=== PATIENT | female | born 1975 | race Caucasian/White ===

== ENCOUNTER → 2017-05-13 | Outpatient (REF) ==
[~2017-05-13] MED LIST: AZI250 PO; CLON-303 PO; ESTRIDIOL; HYD2 PO; IBU600 PO; IPR14R INH; METO-566 PO; NO MEDS; OMEP-218 PO; PEN250 PO; PREG75CA61 PO; TRA50 PO; TRAZ-133 PO
--- NOTE | 2017-05-13 16:14 | RADIOLOGY IMAGING REPORT ---
FACILITY: [facility] PATIENT NAME: Dona Ladd : 1975 MR: [id number] V: [id number] EXAM DATE: ORDERING PHYSICIAN: CHAUNCEY TOURE TECHNOLOGIST: Location: [facility] Patient: Dona Ladd : 1975 Visit/Account:[id number] Date of Sevice: 05/13/2017 Exam type: 4 views lumbar spine History: Fall, low back pain Comparison: 07/06/2012. Findings: There are 5 nonrib-bearing lumbar vertebral bodies and a transitional lumbosacral segment. No acute fracture is seen. AP alignment is appropriate. The soft tissues demonstrate some calcifications in the pelvis which are likely phleboliths. IMPRESSION: 1. No acute fracture of the lumbar spine. Report Dictated By: Maurizio Michelle MD at 05/13/2017 4:08 PM Report E-Signed By: Maurizio Michelle MD at 05/13/2017 4:10 PM WSN:[id number]
== END ==
LOC: RAD 15:25
PROVIDERS: ATTEND Nurse Practitioner
DX: M54.5 Low back pain (principal)
CPT/HCPCS: 72100

== ENCOUNTER → 2017-09-01 | Outpatient (REF) ==
--- NOTE | 2017-09-01 10:33 | RADIOLOGY IMAGING REPORT ---
FACILITY: [facility] PATIENT NAME: Dona Ladd : 1975 MR: [id number] V: [id number] EXAM DATE: ORDERING PHYSICIAN: KINA CARDENAS TECHNOLOGIST: Location: [facility] [place] Patient: Dona Ladd : 1975 Visit/Account:[id number] Date of Sevice: 09/01/2017 WRIST RIGHT 2 VIEW Indication: Wrist pain three weeks after injury Comparison: None Available Findings: No evidence of fracture, dislocation, or acute osseous abnormality right wrist. Small bone island is noted within the medial aspect of the distal radius There is no focal soft tissue abnormality. IMPRESSION: 1.No acute osseous abnormality right wrist Report Dictated By: Myke Saleh at 09/01/2017 10:28 AM Report E-Signed By: Myke Saleh at 09/01/2017 10:29 AM WSN:[id number]
== END ==
LOC: RAD 08:15
PROVIDERS: ATTEND Internal Medicine
DX: M25.531 Pain in right wrist (principal)

== ENCOUNTER → 2017-09-12 | Outpatient (REF) ==
--- NOTE | 2017-09-12 13:56 | RADIOLOGY IMAGING REPORT ---
FACILITY: [facility] [place] PATIENT NAME: Dona Ladd : 1975 MR: [id number] V: [id number] EXAM DATE: ORDERING PHYSICIAN: MADELEINE WHYTE TECHNOLOGIST: Location: [facility] Patient: Dona Ladd : 1975 Visit/Account:[id number] Date of Sevice: 09/12/2017 EXAMINATION: Right elbow radiographs 3 views HISTORY: Right elbow pain. Twisted 5 weeks ago. COMPARISON: None. FINDINGS: AP, lateral and oblique views of the right elbow were obtained. Bones: No acute fracture or dislocation. Joint spaces: Negative. Hardware: None. Alignment: Normal. Soft tissues: Negative. Effusion: None. IMPRESSION: No acute fracture or effusion of the right elbow. Report Dictated By: Sheryl Head MD at 09/12/2017 1:51 PM Report E-Signed By: Sheryl Head MD at 09/12/2017 1:53 PM WSN:[email or web address]
== END ==
LOC: RAD 12:55
PROVIDERS: ATTEND Orthopaedic Surgery Orthopaedic Surgery of the Spine
DX: M25.521 Pain in right elbow (principal)

== ENCOUNTER → 2017-11-16 | Outpatient (REF) ==
--- NOTE | 2017-11-16 13:45 | RADIOLOGY IMAGING REPORT ---
FACILITY: [facility] PATIENT NAME: Dona Ladd : 1975 MR: [id number] V: [id number] EXAM DATE: ORDERING PHYSICIAN: MADELEINE WHYTE TECHNOLOGIST: Location: [facility] Patient: Dona Ladd : 1975 Visit/Account:[id number] Date of Sevice: 11/16/2017 ELBOW RIGHT W/O CONTRAST HISTORY: Elbow pain COMPARISON: None TECHNIQUE: Multiplanar/multisequence was obtained through the right elbow without contrast. CONTRAST: None FINDINGS: Bone marrow: Normal Soft tissues: Normal Medial joint space: Normal without osteochondral lesion Lateral joint space: Normal without osteochondral lesion Ulnar collateral ligament: Normal Lateral collateral ligament: Normal Joint effusion: None Common flexor tendon: Normal Common extensor tendon: Normal Biceps tendon: Normal Triceps tendon: Normal Ulnar nerve: Normal Other findings: None significant IMPRESSION: 1. Unremarkable examination. Report Dictated By: Jameel Ferreira MD at 11/16/2017 1:34 PM Report E-Signed By: Jameel Ferreira MD at 11/16/2017 1:40 PM WSN:[id number]
== END ==
LOC: MRI 06:51
PROVIDERS: ATTEND Orthopaedic Surgery Orthopaedic Surgery of the Spine
DX: M25.521 Pain in right elbow (principal)

== ENCOUNTER → 2018-05-05 | Outpatient (REF) ==
--- NOTE | 2018-05-05 09:52 | RADIOLOGY IMAGING REPORT ---
FACILITY: [facility] [place] PATIENT NAME: Dona Ladd : 1975 MR: [id number] V: [id number] EXAM DATE: ORDERING PHYSICIAN: CHAUNCEY TOURE TECHNOLOGIST: Location: [facility] Patient: Dona Ladd : 1975 Visit/Account:[id number] Date of Sevice: 05/05/2018 MR SPINE LUMBAR W/O CON COMPARISON: Lumbar spine MRI dated December 15, 2012 Additional pertinent history: Tingling and numbness in the legs. Technique: Multiplanar multisequence lumbar spine MRI was performed without gadolinium enhancement. FINDINGS: Vertebral body heights and alignment: Negative. Vertebral marrow signal: Regions of increased T1 and increased T2 signal involving the T12 and L1 bayron tebral bodies compatible with underlying hemangiomas. Distal thoracic cord and conus: Negative. The conus ends at T12-L1. Surrounding soft tissues: Negative. Inspection of the disc spaces reveal the following: L5-S1: Negative. L4-L5: Minimal circumferential disc bulging with facet hypertrophic changes. No significant canal or neural foraminal narrowing. No change since previous exam L3-L4: Negative. L2-L3: Negative. L1-L2: Negative. T12-L1: Negative. IMPRESSION: 1. Stable minimal spondylitic change involving the lower lumbar spine. 2. No underlying canal or neural foraminal narrowing. 3. No change since previous exam Report Dictated By: Abhishek Henning MD at 05/05/2018 9:43 AM Report E-Signed By: Abhishek Henning MD at 05/05/2018 9:47 AM WSN:[id number]
== END ==
LOC: MRI 06:46
PROVIDERS: ATTEND Nurse Practitioner
DX: R07.9 Chest pain, unspecified (principal)
CPT/HCPCS: 72148

== ENCOUNTER → 2018-05-12 | Outpatient (REF) ==
--- NOTE | 2018-05-12 13:54 | RT STRESS TEST REPORT ---
FACILITY: [facility] PATIENT NAME: JAYA GARCIA : [id number] MR: [id number] V: [id number] EXAM DATE: ORDERING PHYSICIAN: CHAUNCEY TOURE TECHNOLOGIST: [employer] Time: 2018-05-12 10:42:42 Total Exercise Time: 00:08:00 Test Indications: chest pain Medications: Protocol: FRANTZ 2 Max HR: 179 BPM 100% of Pred: 179 BPM Max BP: 183/091 mmHG Max Work Load: 10.2 METS SEE ECHO REPORT Confirmed by OREN GEIGER ([id number]), assistant production editor AMADOU NOEL ([id number]) on 05/12/2018 1:54:08 PM Referred By: Overread By: OREN GEIGER
== END ==
LOC: US 01:31 → EDSTATUS 10:00
PROVIDERS: ATTEND Nurse Practitioner
DX: R07.9 Chest pain, unspecified (principal)
CPT/HCPCS: 93017; 93350

== ENCOUNTER → 2018-08-23 | Outpatient (REF) ==
--- NOTE | 2018-08-23 09:02 | RADIOLOGY IMAGING REPORT ---
FACILITY: [facility] [place] PATIENT NAME: Dona Ladd : 1975 MR: [id number] V: [id number] EXAM DATE: ORDERING PHYSICIAN: MADELEINE WHYTE TECHNOLOGIST: Location: [facility] [place] Patient: Dona Ladd : 1975 Visit/Account:[id number] Date of Sevice: 08/23/2018 EXAMINATION: MRI Brain without intravenous contrast HISTORY: Leg numbness and tingling. Hyperreflexia. COMPARISON: None available. TECHNIQUE: Multi-planar, multi-sequence brain MRI was performed without IV contrast administration. FINDINGS: Brain volume: Normal. Sagittal midline structures: Negative. Ventricles: Negative. Acute ischemic changes: None. Hemorrhage: None. Masses / edema: None. Yen-white: Negative. White matter: Negative. Vessels: Negative. Extra-axial: Negative. Calvarium / scalp: Negative. Skull base: Negative. Visualized sinuses / orbits: Mild to moderate mucosal thickening in the left maxillary sinus. Mild mucosal thickening in the ethmoid air cells. Leftward nasal septal deviation. Visualized upper neck: Negative. IMPRESSION: No acute intracranial abnormality or mass. Report Dictated By: Corey Russo MD at 08/23/2018 8:55 AM Report E-Signed By: Corey Russo MD at 08/23/2018 8:58 AM WSN:[id number]
--- NOTE | 2018-08-23 14:01 | RADIOLOGY IMAGING REPORT ---
FACILITY: [facility] PATIENT NAME: Dona Ladd : 1975 MR: [id number] V: [id number] EXAM DATE: ORDERING PHYSICIAN: MADELEINE WHYTE TECHNOLOGIST: Location: [facility] [place], [place] Patient: Dona Ladd : 1975 Visit/Account:[id number] Date of Sevice: 08/23/2018 MR SPINAL CANAL INDICATION: Leg numbness and tingling. Hyperreflexia. COMPARISON: Cervical spine MRI dated 02/20/2013. TECHNIQUE: Multiplanar, multisequence MRI of the cervical and thoracic spine without IV contrast. FINDINGS: Alignment: Normal. Bone marrow signal: Mild discogenic bone marrow edema at C4-C5. Craniocervical junction: Negative. Visualized posterior fossa: Negative. Soft tissues: Negative. Spinal cord: Negative. Disc spaces: Mild disc bulges at C4-C5 at a few levels in the midthoracic spine with no significant s tenosis. IMPRESSION: Mild disc bulges at C4-C5 and a few levels in the midthoracic spine. No significant sten osis. No abnormal signal in the spinal cord. Report Dictated By: Corey Russo MD at 08/23/2018 1:51 PM Report E-Signed By: Corey Russo MD at 08/23/2018 1:56 PM WSN:[id number]
== END ==
LOC: MRI 00:43
PROVIDERS: ATTEND Orthopaedic Surgery Orthopaedic Surgery of the Spine
DX: R20.2 Paresthesia of skin (principal); R29.2 Abnormal reflex
CPT/HCPCS: 70551; 72159